=== PATIENT | female | born 1955 | race Caucasian/White ===

== ENCOUNTER → 2016-07-22 | Outpatient (CLI) | payer BC ==
--- OUTSIDE RECORDS SUMMARY | 2016-07-22 09:25 | XMS REPORT | Continuity of Care Document ---
Author Author [facility] Organization [facility] Address Unknown Phone Unavailable Allergies Medications Problems Date Dx Coded Attending Type Code Diagnosis Diagnosed By 07/13/2015 Ot V76.12 07/13/2015 Ot 733.90 07/13/2015 SREE MÉNDEZ DO S Ot 733.00 07/13/2015 BITA MÉNDEZ DOLINE S Ot 733.90 07/13/2015 FIONA MÉNDEZ DOQUELINE S Ot V76.12 07/31/2015 FIONA MÉNDEZ DOQUELINE S Ot M81.0 07/31/2015 FIONA MÉNDEZ DOQUELINE S Ot Z12.31 11/29/2015 Ot V76.12 OTH SCREEN MAMMO-MALIGN NEOPLASM OF KATELYN 11/29/2015 Ot 733.90 BONE CARTILAGE DIS NOS 11/29/2015 LIZBETHNDER DO, SREE S Ot 733.00 OSTEOPOROSIS NOS 11/29/2015 LIZBETHNDER DO, SREE S Ot 733.90 BONE CARTILAGE DIS NOS 11/29/2015 LIZBETHNDER DO, SREE S Ot V76.12 OTH SCREEN MAMMO-MALIGN NEOPLASM OF KATELYN 11/29/2015 BITA MÉNDEZ DOLINE S Ot M81.0 AGE-RELATED OSTEOPOROSIS W/O CURRENT PAT 11/29/2015 FIONA MÉNDEZ DOQUELINE S Ot Z12.31 ENCNTR SCREEN MAMMOGRAM FOR MALIGNANT NE 11/30/2015 VISH PICHARDO TURBINE SUBASSEMBLER Ot M25.472 EFFUSION, LEFT ANKLE 11/30/2015 VISH PICHARDO TURBINE SUBASSEMBLER Ot M25.572 PAIN IN LEFT ANKLE AND JOINTS OF LEFT FO 12/05/2015 VISH PICHARDO TURBINE SUBASSEMBLER Ot M25.472 EFFUSION, LEFT ANKLE 12/05/2015 VISH PICHARDO TURBINE SUBASSEMBLER Ot M25.572 PAIN IN LEFT ANKLE AND JOINTS OF LEFT FO 12/29/2015 VISH PICHARDO TURBINE SUBASSEMBLER Ot M25.472 EFFUSION, LEFT ANKLE 12/29/2015 VISH PICHARDO APRN Ot M25.572 PAIN IN LEFT ANKLE AND JOINTS OF LEFT FO 02/01/2016 Ot V76.12 OTH SCREEN MAMMO-MALIGN NEOPLASM OF KATELYN 02/01/2016 Ot 733.90 BONE CARTILAGE DIS NOS 02/01/2016 ORENDER DO, SREE S Ot 733.00 OSTEOPOROSIS NOS 02/01/2016 ORENDER DO, SREE S Ot 733.90 BONE CARTILAGE DIS NOS 02/01/2016 ORENDER DO, SREE S Ot V76.12 OTH SCREEN MAMMO-MALIGN NEOPLASM OF KATELYN 02/01/2016 ORENDER DO, SREE S Ot M81.0 AGE-RELATED OSTEOPOROSIS W/O CURRENT PAT 02/01/2016 ORENDER DO, SREE S Ot Z12.31 ENCNTR SCREEN MAMMOGRAM FOR MALIGNANT NE 02/01/2016 VISH PICHARDO APRN Ot M25.472 EFFUSION, LEFT ANKLE 02/01/2016 VISH PICHARDO APRN Ot M25.572 PAIN IN LEFT ANKLE AND JOINTS OF LEFT FO 05/07/2016 Ot V76.12 OTH SCREEN MAMMO-MALIGN NEOPLASM OF KATELYN 05/07/2016 Ot 733.90 BONE CARTILAGE DIS NOS 05/07/2016 ORENDER DO, SREE S Ot 733.00 OSTEOPOROSIS NOS 05/07/2016 ORENDER DO, SREE S Ot 733.90 BONE CARTILAGE DIS NOS 05/07/2016 ORENDER DO, SREE S Ot V76.12 OTH SCREEN MAMMO-MALIGN NEOPLASM OF KATELYN 05/07/2016 ORENDER DO, SREE S Ot M81.0 AGE-RELATED OSTEOPOROSIS W/O CURRENT PAT 05/07/2016 ORENDER DO, SREE S Ot Z12.31 ENCNTR SCREEN MAMMOGRAM FOR MALIGNANT NE 05/07/2016 VISH PICHARDO APRN Ot M25.472 EFFUSION, LEFT ANKLE 05/07/2016 VISH PICHARDO APRN Ot M25.572 PAIN IN LEFT ANKLE AND JOINTS OF LEFT FO 05/07/2016 Ot V76.12 OTH SCREEN MAMMO-MALIGN NEOPLASM OF KATELYN 05/07/2016 Ot 733.90 BONE CARTILAGE DIS NOS 05/07/2016 SREE MÉNDEZ DO Ot 733.00 OSTEOPOROSIS NOS 05/07/2016 SREE MÉNDEZ DO Ot 733.90 BONE CARTILAGE DIS NOS 05/07/2016 SREE MÉNDEZ DO Ot V76.12 OTH SCREEN MAMMO-MALIGN NEOPLASM OF KATELYN 05/07/2016 BITA MÉNDEZ DOLINE Clau Ot M81.0 AGE-RELATED OSTEOPOROSIS W/O CURRENT PAT 05/07/2016 SREE MÉNDEZ DO Ot Z12.31 ENCNTR SCREEN MAMMOGRAM FOR MALIGNANT NE 05/07/2016 VISH PICHARDO TURBINE SUBASSEMBLER Ot M25.472 EFFUSION, LEFT ANKLE 05/07/2016 VISH PICHARDO TURBINE SUBASSEMBLER Ot M25.572 PAIN IN LEFT ANKLE AND JOINTS OF LEFT FO Procedures Results Encounters ACCT No. Visit Date/Time Discharge Status Pt. Type Provider Facility Loc./Unit Complaint [id number] 07/02/2013 10:38:00 2013 23:59:59 CLS Outpatient SREE MÉNDEZ DO [facility] RAD SCREENING,OSTEOPORSIS [id number] 11/29/2015 15:03:00 ACT Outpatient VISH PICHARDO TURBINE SUBASSEMBLER [facility] RAD ANKLE PAIN AND SWELLING [id number] 07/13/2015 11:10:00 ACT Outpatient DEV AWAN SREE S [facility] RAD OSTEOPOROSIS, SCREENING [id number] 07/02/2011 12:55:00 Document Registration [id number] 12/28/2010 08:28:00 Document Registration
--- NOTE | 2016-07-22 21:31 | Diagnostic Imaging Report ---
INDICATION: Screening. The current study was also evaluated with a Computer Aided Detection (CAD) system. Comparison made with prior examination of 07/13/2015, 07/02/2013, and 12/28/2010. FINDINGS: There is a moderate amount of residual fibroglandular tissue bilaterally. There is a benign type calcification on the right. There is no new dominant mass, spiculated lesion, or suspicious calcification identified. The skin, nipples, and axillae are unremarkable. IMPRESSION: Benign. ACR BI-RADS Category 2: Benign findings. Result letter will be mailed to the patient. Note: At least 10% of breast cancer is not imaged by mammography. Dictated by: Dictated on workstation # [id number]
== END ==
LOC: RAD 09:22
PROVIDERS: ATTEND Family Medicine
DX: Z12.31 Encounter for screening mammogram for malignant neoplasm of breast (principal)
CPT/HCPCS: 77067

== ENCOUNTER → 2018-04-09 | Outpatient (CLI) | payer BC ==
--- NOTE | 2018-04-09 14:20 | Diagnostic Imaging Report ---
DEXA scan Indication: Screening for osteoporosis. This study was compared to the prior exam of 07/13/2015. The bone mineral density of hips and spine was measured. The T score for the spine is -1.9 On the prior exam the T score is -2.1. The T score for the left hip is -1.5 and the right hip -1.3 On the prior exam the respective T. scores were -1.3 and -1.0. Impression: There are mixed results. There has been a slight increase in the bone mineral density of the spine and a slight decrease in the bone mineral density of each hip. All the T-scores remain within the range of osteopenia however. Dictated by: Dictated on workstation # [id number]
--- NOTE | 2018-04-09 16:58 | Diagnostic Imaging Report ---
Indication: Routine screening. Comparison is made with prior mammogram from 07/22/2016 and 07/13/2015. 2-D and 3-D bilateral screening mammography was performed with CAD. Both breasts remain heterogeneously dense, limiting the sensitivity of mammography. The parenchymal pattern is stable. No dominant mass or malignant-appearing microcalcifications are seen. The axillae are unremarkable. Impression: BI-RADS category 2 No mammographic features suspicious for malignancy are identified. ACR BI-RADS Category 2: Benign findings. Result letter will be mailed to the patient. Note: At least 10% of breast cancer is not imaged by mammography. Dictated by: Dictated on workstation # [id number]
== END ==
LOC: RAD 08:49
PROVIDERS: ATTEND Family Medicine
DX: Z12.31 Encounter for screening mammogram for malignant neoplasm of breast (principal); Z13.820 Encounter for screening for osteoporosis; M85.88 Other specified disorders of bone density and structure, other site
CPT/HCPCS: 77067; 77080

== ENCOUNTER → 2018-05-14 | Outpatient (CLI) | payer BC ==
--- NOTE | 2018-05-14 14:46 | Diagnostic Imaging Report ---
INDICATION: Chest and back pain. FINDINGS: The heart size, mediastinal configuration, and pulmonary vascularity are within normal limits. There is no pleural effusion, pneumothorax, or pneumonia. The osseous structures are unremarkable. IMPRESSION: No acute cardiopulmonary abnormality. Dictated by: Dictated on workstation # [id number]
== END ==
LOC: RAD 13:47
PROVIDERS: ATTEND Family Medicine
DX: R07.9 Chest pain, unspecified (principal); M54.9 Dorsalgia, unspecified
CPT/HCPCS: 71046

== ENCOUNTER → 2018-05-21 | Outpatient (CLI) | payer BC ==
[2018-05-21 11:39] VITALS: BP 141/77
--- NOTE | 2018-05-21 11:39 | Cardiology Stress Test Report ---
Stress Test Report Date of Procedure/Referring: Date of Procedure: May 21, 2018 PCP Asha Lilly MD Admitting Physician Annita Mcmanus DO Indications: Chest pain. Baseline Heart Rate: 63 Baseline Blood Pressure: Blood Pressure Systolic: 141 Blood Pressure Diastolic: 77 Baseline EKG: Baseline EKG: sinus rhythm Summary/Conclusion: Summary: In summary, the patient started exercising with a baseline heart rate, blood pressure and EKG mentioned above Patient was able to exercise for a total of 8 minutes on Joel protocol, METs 9.7 Maximum heart rate 146, which is 92 percent of maximum predicted heart rate response. Maximum blood pressure 198/68 mmHg. Stress EKG horizontal [address] depressions noted. Recovery EKG Return to baseline Conclusion: 1. Excellent functional capacity. 2. Hypertensive response to exercise. 3. ST depressions noted on peak exercise and recovery, however no chest pain. 4. This will be considered a positive stress test. I discussed with Dr. Mcmanus and we will set up an outpatient visit. Asha LILLY MD May 21, 2018 11:39 am
== END ==
LOC: CARD 10:40
PROVIDERS: ATTEND Internal Medicine Interventional Cardiology
DX: R07.9 Chest pain, unspecified (principal)
CPT/HCPCS: 93017

== ENCOUNTER → 2018-06-19 | Outpatient (CLI) | payer BC | LOC: CARD 13:01 | PROVIDERS: ATTEND Family Medicine | DX: R07.9 Chest pain, unspecified (principal) | CPT/HCPCS: 93306 ==

== ENCOUNTER 2019-03-25 08:09 | Day surgery (SDC) | payer BC ==
[2019-03-25] VITALS (10 sets, daily range): BP systolic 107–135; BP diastolic 61–82
[~2019-03-25] VITALS: Ht 167.7 cm; Wt 68.0 kg
[2019-03-25] MEDS ORDERED: NS IV 1000 ML 1,000 ML ONE (08:29)
[2019-03-25] MEDS ORDERED: LIDOCAINE 1% INJ 20 ML 20 ML VIAL ONE ×2 (08:29→10:09)
[2019-03-25] MEDS ORDERED: HEParin (CATH LAB) 2,000 ML IV ONE (08:29)
[2019-03-25 08:51] LABS: HEMOGLOBIN 14.5 G/DL (11.5-16.0); MEAN PLATELET VOLUME 10.9 FL (7.4-10.4); RED CELL DISTRIBUTION WIDTH 13.4 % (10.0-14.5); WHITE BLOOD COUNT 7.8 10^3/uL (4.3-11.0)
[2019-03-25 09:14] LABS: ALBUMIN 4.3 GM/DL (3.2-4.5); BILIRUBIN,TOTAL 0.4 MG/DL (0.1-1.0); CALCIUM 10.1 MG/DL (8.5-10.1); CREATININE SERUM 1.1 MG/DL (0.60-1.30); POTASSIUM 3.9 MMOL/L (3.6-5.0); TOTAL PROTEIN 6.9 GM/DL (6.4-8.2)
[2019-03-25 09:18] LABS: INR 0.8 (0.8-1.4); PROTHROMBIN TIME PATIENT 11.8 SEC (12.2-14.7)
[2019-03-25] MEDS ORDERED: MIDAZOLAM 5 MG/5 ML (VERSED) VIAL ONE (09:31)
[2019-03-25] MEDS ORDERED: VERAPAMIL 5 MG/2 ML (CALAN) VIAL IV ONE (09:32)
[2019-03-25] MEDS ORDERED: NITRO DRIP 25000 MCG/D5W 250 ML IV ONE (09:32)
[2019-03-25] MEDS ORDERED: fentaNYL INJECTION 100 MCG/2 ML AMP ONE (09:32)
[2019-03-25] MEDS ORDERED: HEParin 1000 UNIT/ML (10ML VIAL) FOR BOLUS ONE (09:32)
[2019-03-25] MEDS ORDERED: ADENOSINE 3 MG/1 ML (ADENOSCAN) 30ML VIAL IV ONE (10:25)
--- NOTE | 2019-03-25 11:05 | Cardiac Procedure Note-CS/ASA ---
Pre-Procedure Note Pre-Op Procedure Note H&P Reviewed The H&P was reviewed, patient examined and no changes noted. Date H&P Reviewed: Mar 25, 2019 Time H&P Reviewed: 09:00 Conscious Sedation Pre-Proced Time 09:00 ASA Score 3 For ASA 3 and 4: Consider anesthesia and medical clearance. Also, for patients with a history of failed moderate sedation consider anesthesia. Airway Lungs Heart ASA score ASA 1: a normal healthy patient ASA 2: a patient with a mild systemic disease (mid diabetes, controlled hypertension, obesity ASA 3: a patient with a severe systemic disease that limits activity (angina, COPD, prior Myocardial infarction) ASA 4: a patient with an incapacitating disease that is a constant threat to life (CHF, renal failure) ASA 5: a moribund patient not expected to survive 24 hrs. (ruptured aneurysm) ASA 6: a declared brain- patient whose organs are being harvested. For emergent operations, add the letter E after the classification Mallampati Classification Grade 1 Sedation Plan Analgesia, Amnesia, Plan communicated to team members, Discussed options with patient/fam, Discussed risks with patient/fam The patient is an appropriate candidate to undergo the planned procedure, sedation, and anesthesia. The patient immediately re-assessed prior to indication. Asha WAITE MD Mar 25, 2019 11:05 am
--- NOTE | 2019-03-25 11:11 | Coronary Angiography Report ---
Coronary Angiography Report DATE OF PROCEDURE: 03/25/19 INDICATION: Chest pain, abnormal nuclear stress test. PREOPERATIVE DIAGNOSIS: Chest pain, abnormal nuclear stress test. POSTOPERATIVE DIAGNOSIS: Moderate one-vessel CAD. HISTORY: This is a 64-year-old lady with complains of chest pain. Exercise stress test showed ST depression during peak exercise. Therefore, the patient was scheduled for coronary angiography. PROCEDURES PERFORMED: 1.Coronary angiography. 2.Left heart catheterization. 3. FFR to the proximal LAD. COMPLICATIONS: None. SPECIMENS: None. ESTIMATED BLOOD LOSS: 10 mL ANESTHESIA: Conscious sedation ANTICOAGULATION: IV heparin CONTRAST: 127 mL. FLUOROSCOPY: 18.8 minutes. FLOUROSCOPY DOSE: 521 mgy. PROCEDURE DETAILS: The patient is a 64 female and was brought to the lab animal technologist after informed consent was taken. All the risks and complications were explained in detail; this included the risk of bleeding, vascular damage, stroke, [place] and even . The patient was draped and prepped in the usual sterile fashion. We tried to gain access in the right radial artery but were not able to get access. Therefore access was gained in the right femoral artery with a 5 Marshallese sheath. Coronary angiography and left heart catheterization was performed with a JR4 and JL4 catheter. FINDINGS: 1.Left main: Patent. 2.LAD: Moderate ostial LAD stenosis. Stenosis severity 50 percent. Mild proximal LAD stenosis. Mild calcification is noted. 3.Left circumflex artery: Patent. 4.RCA: Patent. Small vessel. 5.Left heart catheterization: LV pressure 121/5 mmHg. LVEDP 12 mmHg. Aortic pressure 119/68 mmHg. Normal LV function with no wall motion abnormalities. No gradient across the aortic valve. Recommendations: FFR to ostial LAD is recommended. FFR details: We used the same 5 Marshallese diagnostic catheter. 5000 of IV heparin was given. We used an FFR wire to cross the lesion in the ostial LAD. Baseline FFR was baseline FFR was 0.95. Adenosine was started at 140 g per KG per minute for 2 minutes. The lowest FFR was 0.86 which is acceptable therefore PCI was deferred. The wire was taken out at the end of the procedure and post-angiogram did not reveal any vascular complication. The patient tolerated the procedure well and did not have any complication. The right femoral artery was closed with a mynx device. CONCLUSIONS: Moderate ostial LAD stenosis. Normal LV function. Continue aggressive secondary prevention measures. Kody Lilly MD, FACP, FACC, [facility] Interventional Cardiology Asha LILLY MD Mar 25, 2019 11:10 am
[2019-03-25] MEDS ORDERED: ASPI-983 PO (11:14)
[2019-03-25] MEDS ORDERED: ATOR40TA PO (11:15)
--- NOTE | 2019-03-25 11:15 | Discharge Inst-Post CATH ---
Discharge Inst-CATH/EP Problems Reviewed?: Yes Final Diagnosis Moderate one vessel CAD Post Cardiac Cath/EP D/C Inst Follow Up/Plan Dr. Lilly in 4-6 weeks. <b>CARDIAC CATH/EP PROCEDURE DISCHARGE INSTRUCTIONS</b> ACTIVITY * Go Home directly and rest. * Limit activity of the leg (or wrist if it was used) for 7 days including aerobics, swimming, jogging, bicycling, etc. * Restrict stair-climbing for 7 days if possible, if not, climb up with your non-cath leg, then bring together on the same step. * Avoid lifting, pushing, pulling or excessive movement of the affected extremity for 7 days. * Customary sexual activity may be resumed after 2 days-use caution not to use a position that strains or causes pain to the affected extremity. * No driving for 24 hours. * NO SMOKING. * Avoid straining for bowel movements for 7 days. * Gentle walking on level ground is allowed. * Returning to work will depend on the type of procedure and the results. Your doctor will discuss this with you. CALL YOUR DOCTOR FOR ANY OF THE FOLLOWING: *If bleeding from the puncture site occurs- Apply gentle pressure to site with clean cloth and call your doctor or EMS. * If a knot or lump forms under the skin, increases in size, or causes pain. * If bruising appears to be worsening or moving further down your leg instead of disappearing. * Temperature above 101 F. CARE OF YOUR GROIN INCISION; * Bruising or purple discoloration of the skin near the puncture site is common. * You may shower only, no bathtub bathing for 5 days. Be careful to avoid slipping as your leg may feel stiff. * If a closure device was used on your femoral artery, please see the attached guide regarding care of the device and your leg. * Leave dressing on FOR 24 hours. CARE OF YOUR WRIST INCISION; * Bruising or purple discoloration of the skin near the puncture site is common. * You may shower. * DO NOT submerge wrist. * Leave dressing on FOR 24 hours. Asha LILLY MD Mar 25, 2019 11:15 am
--- NOTE | 2019-03-25 11:18 | Cardiology Discharge Summary ---
Diagnosis/Chief Complaint Date of Admission 03/25/2019 Date of Discharge 03/25/2019 Admission Diagnosis Chest pain, abnormal exercise stress test. Final/Discharge Diagnosis Moderate one vessel CAD Chief Complaint/HPI Chief Complaint/HPI This is a 64-year-old lady with complains of chest pain. Exercise stress test showed ST depressions at peak exercise. Coronary angiography was recommended. Discharge Summary Procedures Moderate one vessel CAD in the ostial LAD, stenosis severity 50 percent, FFR 0.86 therefore PCI was deferred. Normal LV function with no wall motion abnormalities. Normal LVEDP. Discharge Physical Examination Normal. Hospital Course Was the Problem List Reviewed?: Yes Normal. Pending Labs Laboratory Tests 03/25/19 08:44: White Blood Count 7.8, Red Blood Count 4.59, Hemoglobin 14.5, Hematocrit 43, Mean Corpuscular Volume 94, Mean Corpuscular Hemoglobin 32, Mean Corpuscular Hemoglobin Concent 34, Red Cell Distribution Width 13.4, Platelet Count 194, Mean Platelet Volume 10.9, Prothrombin Time 11.8, INR Comment 0.8, Activated Partial Thromboplast Time 28, Sodium Level 145, Potassium Level 3.9, Chloride Level 107, Carbon Dioxide Level 25, Anion Gap 13, Blood Urea Nitrogen 22, Creatinine 1.10, Estimat Glomerular Filtration Rate 50, BUN/Creatinine Ratio 20, Glucose Level 88, Calcium Level 10.1, Corrected Calcium 9.9, Total Bilirubin 0.4, Aspartate Amino Transf (AST/SGOT) 20, Alanine Aminotransferase (ALT/SGPT) 22, Alkaline Phosphatase 56, Total Protein 6.9, Albumin 4.3, Triglycerides Level 136, Cholesterol Level 196, LDL Cholesterol Direct 107, VLDL Cholesterol 27, HDL Cholesterol 55 Discussion & Recommendations Discussion Discharge instructions will be discussed with the patient. Patient will be started on aspirin and statin therapy. Follow up appt.: Dr. Lilly in 4-6 weeks. Dicharge Diet: Cardiac Diet Activity as Tolerated: Yes Home Medications Reviewed patient Home Medication Reconciliation performed by pharmacy medication reconciliations loss control technician and/or nursing. Patients Allergies have been reviewed. Discharge Home Medications: Reviewed and agree with Discharge Medication list on patient's Discharge Instruction sheet Condition at discharge Stable. Instructions to patient/family Dr. Lilly in 4-6 weeks. Asha LILLY MD Mar 25, 2019 11:18 am
[2019-03-25] MEDS ORDERED: NS IV 1000 ML 1,000 ML IV SCH (12:10)
== END 2019-03-25 16:00 | disposition home or self-care (01) ==
LOC: CATH 08:09 → SDC 11:40 → CATH 16:00
PROVIDERS: ATTEND Internal Medicine Interventional Cardiology
DX: I25.10 Atherosclerotic heart disease of native coronary artery without angina pectoris (principal); I11.9 Hypertensive heart disease without heart failure; E78.5 Hyperlipidemia, unspecified; F17.210 Nicotine dependence, cigarettes, uncomplicated; Z79.82 Long term (current) use of aspirin; Z79.899 Other long term (current) drug therapy; Z82.49 Family history of ischemic heart disease and other diseases of the circulatory system; Z83.3 Family history of diabetes mellitus; Z80.9 Family history of malignant neoplasm, unspecified; Z82.3 Family history of stroke
CPT/HCPCS: 36415; 80053; 80061; 85027; 85610; 85730; 87081; 93458

== ENCOUNTER → 2019-06-14 | Outpatient (CLI) | payer BC, OTHER ==
[~2019-06-14] MED LIST: ASPI-983 PO; ATOR40TA PO
--- NOTE | 2019-06-14 13:13 | Diagnostic Imaging Report ---
PROCEDURE: US carotid duplex, bilateral. TECHNIQUE: Multiple real-time grayscale images were obtained over the carotid arteries in various projections, bilaterally. Additional spectral analysis and color Doppler duplex images were also obtained. INDICATION: Dizziness and hyperlipidemia. FINDINGS: There is some intimal thickening in both carotid systems. No significant velocity elevation is seen to suggest focal stenosis. There is no occlusion. Both vertebral arteries demonstrate antegrade flow. IMPRESSION: No evidence of a hemodynamically significant stenosis. Parameters based on the consensus panel Hogan-Scale and Doppler ultrasound criteria published April 2003, Radiology, Volume 229. DOPPLER (peak systolic velocity M/S Right Left CCA 1.01 .84 ICA Proximal .63 .73 ICA Mid .84 .96 ICA Distal .94 .86 RATIO .9 1.1 ECA .90 .74 VERT .31 .58 Dictated by: Dictated on workstation # [id number]
== END ==
LOC: RAD 10:56
PROVIDERS: ATTEND Nurse Practitioner Family
DX: E78.5 Hyperlipidemia, unspecified (principal); R42 Dizziness and giddiness
CPT/HCPCS: 93880

== ENCOUNTER → 2019-06-24 | Outpatient (CLI) | payer BC ==
--- NOTE | 2019-06-24 11:28 | Diagnostic Imaging Report ---
EXAMINATION: CT low-dose lung cancer screening exam. INDICATION: 40 pack-year smoking history. COMPARISON: There are no prior CT chest examinations available for comparison. The plain film examination of the chest performed on 05/14/2018 failed to show any sign of an acute abnormality. TECHNIQUE: Routine images of the thorax using the CT low-dose lung cancer screening protocol were performed. All CT scans use one or more of the following dose optimizing techniques: automated exposure control, MA and/or KvP adjustment based on patient size and exam type or iterative reconstruction. FINDINGS: There is no parenchymal nodule to suggest malignancy. There is a 4 mm calcified perifissural nodule in the right midlung (image 162 of 213). This finding is most likely a small granuloma. There is a coarse band of increased density in the right lung base. I suspect this is related to chronic atelectasis/fibrosis. The lungs are otherwise generally clear. The heart size is within normal limits. Coronary artery calcifications are noted. The aorta is not abnormally dilated. There is no obvious mediastinal or hilar adenopathy. The thyroid gland is unremarkable. There is a 1 cm lobulated density in the lateral aspect of the left breast. In reviewing the previous mammogram of 04/09/2018 there was no clear evidence for malignancy in this area. Even so, I would recommend that the patient have a repeat mammogram for more sensitive evaluation of this area. The sections through the upper abdomen failed to show any sign of an acute abnormality. The bone windows are unremarkable for a fracture or for a destructive lesion. IMPRESSION: 1. There is no solid mass to suggest malignancy. A follow-up low-dose lung cancer screening exam in one year would be recommended for continued evaluation. 2. There is a band of chronic atelectasis/fibrosis in the right lung base. There is no evidence for an acute cardiopulmonary abnormality. 3. The heart is not enlarged but coronary artery calcifications are evident. 4. Mammography would be recommended for further evaluation of the asymmetric nodular density in the left breast. LUNG-RADS CATEGORY: 1S Dictated by: Dictated on workstation # [id number]
== END ==
LOC: RAD 10:04
PROVIDERS: ATTEND Family Medicine
DX: Z12.2 Encounter for screening for malignant neoplasm of respiratory organs (principal); F17.200 Nicotine dependence, unspecified, uncomplicated

== ENCOUNTER → 2019-07-05 | Outpatient (CLI) | payer BC ==
--- NOTE | 2019-07-05 14:10 | Diagnostic Imaging Report ---
INDICATION: Left breast density noted on recent CT. Correlation is made with prior mammograms from 04/09/2018 and 07/22/2016. 2-D and 3-D bilateral diagnostic mammography was performed. The current study was also evaluated with a Computer Aided Detection (CAD) system. 3-D tomosynthesis was also performed and reviewed. FINDINGS: Both breasts remain heterogeneously dense, limiting the sensitivity of mammography. There are benign calcifications bilaterally. No mass or malignant-appearing microcalcifications are seen. Axillae are unremarkable. IMPRESSION: No mammographic features suspicious for malignancy are identified. ACR BI-RADS Category 2: Benign findings. Result letter will be mailed to the patient. Note: At least 10% of breast cancer is not imaged by mammography. Dictated by: Dictated on workstation # [id number]
== END ==
LOC: RAD 12:58
PROVIDERS: ATTEND Family Medicine
DX: R92.2 Inconclusive mammogram (principal)
CPT/HCPCS: 77066

== ENCOUNTER → 2019-12-14 | Outpatient (CLI) | payer BC ==
--- NOTE | 2019-12-14 15:57 | Diagnostic Imaging Report ---
INDICATION: Left breast asymmetry noted on screening CT chest. Sonographic interrogation of the outer left breast was performed. There is an area of slightly irregular hypoechogenicity at the 2:30 location of the left breast, 8 cm from the nipple. This measures 6 mm x 8 mm x 4 mm. This could conceivably represent the area of asymmetry. No internal vascularity is detected. In addition, there is a cyst at the 3:00 location 4 cm from the nipple measuring 7 mm x 3 mm x 6 mm. There is a cyst at the 3:00 location 5 cm from the nipple measuring 7 mm x 5 mm x 7 mm. No other abnormalities are detected. IMPRESSION: BI-RADS Category 4 Focal, slightly irregular hypoechogenicity at the 2:30 location left breast, 8 cm from the nipple. While this could represent fibro-glandular tissue, small breast neoplasm cannot be entirely excluded. Tissue sampling is recommended. This would be amenable to ultrasound-guided core biopsy. ACR BI-RADS Category 4: Suspicious abnormality. Dictated by: Dictated on workstation # [id number]
== END ==
LOC: RAD 13:15
PROVIDERS: ATTEND Family Medicine
DX: R92.2 Inconclusive mammogram (principal); N64.89 Other specified disorders of breast
CPT/HCPCS: 76642

== ENCOUNTER → 2019-12-20 | Outpatient (CLI) | payer BC ==
[~2019-12-20] VITALS: Ht 170.2 cm; Wt 70.5 kg
[~2019-12-20] MED LIST changes: +LIDOCAINE 1% INJ 20 ML 20 ML VIAL INJ ONE
--- NOTE | 2019-12-20 10:26 | Diagnostic Imaging Report ---
INDICATION: Left breast density. Patient presents for biopsy. TECHNIQUE: The patient was brought to the procedure room and placed on the table in the supine position. Ultrasound imaging of the left breast was performed to evaluate for an appropriate entry site. The left breast was then prepped and draped in the usual sterile fashion. A small amount of 1% lidocaine was utilized for local anesthesia. Multiple core biopsies were obtained of the hypoechoic lesion at the 2:30 location of the left breast, 8 cm from the nipple. A 13-gauge vacuum-assisted handheld mammotome device was utilized. A marker clip was then deployed. Hemostasis was obtained using manual compression. The patient tolerated the procedure well and left the Department in stable condition. IMPRESSION: Successful ultrasound-guided biopsy of the hypoechoic nodule at the 2:30 location of the left breast 8 cm from the nipple utilizing a hand held vacuum assisted mammotome device. Pathology results are currently pending. Dictated by: Dictated on workstation # [id number]
--- NOTE | 2019-12-20 11:21 | Diagnostic Imaging Report ---
INDICATION: Left breast nodule, status post ultrasound-guided biopsy. 2D exaggerated CC and mediolateral mammography was performed status post ultrasound-guided core biopsy. There is a marker clip in the upper and outer aspect of the left breast at posterior depth, status post biopsy. Left breast is heterogeneously dense. IMPRESSION: Clip upper outer left breast, status post biopsy. Pathology results are currently pending. Dictated by: Dictated on workstation # [id number]
== END ==
LOC: RAD 08:45
PROVIDERS: ATTEND Family Medicine
DX: N63.20 Unspecified lump in the left breast, unspecified quadrant (principal); R92.2 Inconclusive mammogram
CPT/HCPCS: 19083; 77065; A4648; G0279

== ENCOUNTER → 2020-01-03 | Outpatient (CLI) | payer MEDICARE, OTHER ==
[~2020-01-03] MED LIST changes: +GADOBUTROL 7.5 MMOL/7.5 ML (GADAVIST) VIAL IV ONE; -LIDOCAINE 1% INJ 20 ML 20 ML VIAL INJ ONE; +NS 50 ML (IVPB) BAG IV ONE
== END ==
LOC: RAD 10:15
PROVIDERS: ATTEND Nurse Practitioner Family
DX: R92.8 Other abnormal and inconclusive findings on diagnostic imaging of breast (principal)
CPT/HCPCS: 77049

== ENCOUNTER → 2020-06-27 | Outpatient (CLI) | payer MEDICARE, OTHER ==
[~2020-06-27] MED LIST changes: +ASPI-1238 PO; -ASPI-983 PO; -GADOBUTROL 7.5 MMOL/7.5 ML (GADAVIST) VIAL IV ONE; -NS 50 ML (IVPB) BAG IV ONE
--- NOTE | 2020-06-27 10:24 | Diagnostic Imaging Report ---
EXAMINATION: CT Chest without contrast (lung screening). TECHNIQUE: Multiple contiguous axial images were obtained through the chest without the use of intravenous contrast according to lung cancer screening protocol. All CT scans use one or more of the following dose optimizing techniques: automated exposure control, MA and/or KvP adjustment based on a patient size and exam type, or iterative reconstruction. HISTORY: 41 pack year history of smoking. COMPARISON: CT chest 06/24/2019 FINDINGS: Thyroid: The thyroid is normal. Mediastinum: Heart size is normal without significant pericardial effusion. Calcifications of the aorta and coronary vessels. Thoracic aorta is normal in caliber. No suspicious lymphadenopathy. Lungs and airways: The lungs are clear without consolidation, pleural effusion, or pneumothorax. There are multiple bilateral pulmonary nodules. The largest nodule within the right lung measures 0.4 cm along the lateral margin of the right upper lobe (series 2 image 120). The largest left nodule measures 0.6 cm within the inferior left lower lobe (series 2 image 199). These nodules are unchanged from 06/24/2019. No new suspicious pulmonary nodule. Linear atelectasis or scarring within the right lower lobe. The airways are normal. Upper abdomen: The subphrenic structures are normal. Musculoskeletal: No suspicious osseous lesion or compression fracture. IMPRESSION: 1. Stable bilateral pulmonary nodules measuring up to 0.6 cm. No new suspicious pulmonary nodule. Recommend continued annual low-dose CT screening. LUNG-RADS CATEGORY: 2: Benign appearance or behavior. MODIFIER: None. Dictated by: Dictated on workstation # [id number]
== END ==
LOC: RAD 09:45
PROVIDERS: ATTEND Family Medicine
DX: R91.8 Other nonspecific abnormal finding of lung field (principal); F17.210 Nicotine dependence, cigarettes, uncomplicated
CPT/HCPCS: 71271

== ENCOUNTER → 2020-11-09 | Outpatient (CLI) | payer MEDICARE, OTHER ==
--- NOTE | 2020-11-09 14:30 | Diagnostic Imaging Report ---
Digital mammogram INDICATION: Bilateral screening This study was compared to the prior exams of 07/05/2019 and 04/09/2018. At this time there are no current complaints. The previous bilateral diagnostic mammogram of 07/05/2019 failed to show any sign of malignancy. However the subsequent left breast ultrasound exam of 12/14/2019 did note a focal slightly irregular hypoechoic area in the 2:30 position of the left breast up to 8 cm from the nipple. This area was biopsied using ultrasound guidance on 12/21/2019. The results of the biopsy revealed mild intraductal hyperplasia without atypia. There was no evidence of malignancy. The MRI breast exam performed on 01/03/2020 was also felt to be unremarkable for malignancy. On this exam there is now a stereotactic clip associated with a small benign-appearing nodular density in the upper outer aspect of the left breast. The nodular density was not clearly evident on the prior exam and could conceivably represent a small hematoma. The overall appearance of breasts has not changed significantly otherwise. The fibroglandular tissue in both breasts is dense and this does limit the sensitivity of this exam. There is no primary or secondary sign of malignancy noted. IMPRESSION: There are post biopsy changes involving the left breast. There is no evidence for malignancy. ACR BI-RADS Category 1: Negative. Result letter will be mailed to the patient. Note: At least 10% of breast cancer is not imaged by mammography. Dictated by: Dictated on workstation # [id number]
== END ==
LOC: RAD 10:30
PROVIDERS: ATTEND Nurse Practitioner Family
DX: Z12.31 Encounter for screening mammogram for malignant neoplasm of breast (principal)
CPT/HCPCS: 77063; 77067

== ENCOUNTER 2020-12-01 13:25 | Outpatient (RCR) | payer MEDICARE, OTHER | END 2020-12-01 13:47 | disposition home or self-care (01) | PROVIDERS: ATTEND Nurse Practitioner Family | DX: N81.89 Other female genital prolapse (principal); N39.3 Stress incontinence (female) (male) ==

== ENCOUNTER → 2022-02-28 | Outpatient (CLI) | payer MEDICARE, OTHER ==
--- NOTE | 2022-02-28 17:01 | Diagnostic Imaging Report ---
INDICATION: Routine screening. COMPARISON: Prior mammograms of 11/09/2020 and 07/05/2019. EXAMINATION: 2D and 3D bilateral screening mammography was performed with CAD. The current study was also evaluated with a Computer Aided Detection (CAD) system. FINDINGS: Both breasts are heterogeneously dense, limiting the sensitivity of mammography. Nodular densities outer left breast are stable. There are benign calcifications in both breasts. No spiculated mass or malignant-appearing microcalcifications are seen. Axillae are unremarkable. IMPRESSION: No mammographic features suspicious for malignancy are identified. ACR BI-RADS Category 2: Benign findings. Result letter will be mailed to the patient. Note: At least 10% of breast cancer is not imaged by mammography. Dictated by: Dictated on workstation # [id number]
== END ==
LOC: RAD 11:00
PROVIDERS: ATTEND Family Medicine
DX: Z12.31 Encounter for screening mammogram for malignant neoplasm of breast (principal)
CPT/HCPCS: 77063; 77067

== ENCOUNTER 2022-11-14 18:32 | Emergency (ER) | payer MEDICARE, OTHER ==
--- NOTE | 2022-11-14 19:08 | ED Headache ---
General Chief Complaint: Head/Cervical Problems Stated Complaint: HEADACHE Nursing Triage Note: PT AMB TO RM 8 WITH C/O ACEVEDO SINCE 0500 THIS MORNING WITHOUT RELIEF Source: patient History of Present Illness Date Seen by Provider: Nov 14, 2022 Time Seen by Provider: 18:40 Initial Comments PT ARRIVES VIA POV FROM HOME C/O HEADACHE SINCE 0500 PAIN IS IN FRONTAL AND OCCIPITAL AREAS Allergies and Home Medications Allergies Coded Allergies: No Known Drug Allergies (Unverified , 03/25/19) Patient Home Medication List Aspirin (Aspirin EC) 81 Mg Tablet.dr, 81 MG PO DAILY Prescribed by: Asha WAITE on 03/25/19 1114 Atorvastatin Calcium (Lipitor) 40 Mg Tablet, 40 MG PO DAILY Prescribed by: Asha WAITE on 03/25/19 1115 Past Nepkqup-Uiiwut-Ywxmsp Hx Patient Social History Tobacco Use?: Yes Tobacco type used: Cigarettes Substance use?: No Alcohol Use?: Yes Pt feels they are or have been: No Past Medical History Surgery/Hospitalization HX: HTN, HLD Section, Lumpectomy Respiratory: No Currently Using CPAP: No Currently Using BIPAP: No High Cholesterol, Palpitations Neurological: No Genitourinary: No Gastrointestinal: No Cancer: No Did You Recieve Any Treatments: No Blood Disorders: No Adverse Reaction/Blood Tranf: No Physical Exam Vital Signs Vital Signs - First Documented 11/14/22 18:40 Temp 36.2 Pulse 68 Resp 18 B/P (MAP) 167/74 (105) Pulse Ox 96 O2 Delivery Room Air Capillary Refill : Height, Weight, BMI Height: '" Weight: lbs. oz. kg; 24.33 BMI Method: Progress/Results/Core Measures Results/Orders Lab Results Laboratory Tests Test 11/14/22 19:10 11/14/22 19:40 Range/Units White Blood Count 10.3 4.3-11.0 10^3/uL Red Blood Count 5.08 3.80-5.11 10^6/uL Hemoglobin 16.0 11.5-16.0 g/dL Hematocrit 48 35-52 % Mean Corpuscular Volume 94 80-99 fL Mean Corpuscular Hemoglobin 32 25-34 pg Mean Corpuscular Hemoglobin Concent 34 32-36 g/dL Red Cell Distribution Width 13.0 10.0-14.5 % Platelet Count 181 130-400 10^3/uL Mean Platelet Volume 11.1 9.0-12.2 fL Immature Granulocyte % (Auto) 0 % Neutrophils (%) (Auto) 75 42-75 % Lymphocytes (%) (Auto) 16 12-44 % Monocytes (%) (Auto) 7 0-12 % Eosinophils (%) (Auto) 2 0-10 % Basophils (%) (Auto) 1 0-10 % Neutrophils # (Auto) 7.6 1.8-7.8 10^3/uL Lymphocytes # (Auto) 1.6 1.0-4.0 10^3/uL Monocytes # (Auto) 0.7 0.0-1.0 10^3/uL Eosinophils # (Auto) 0.2 0.0-0.3 10^3/uL Basophils # (Auto) 0.1 0.0-0.1 10^3/uL Immature Granulocyte # (Auto) 0.0 0.0-0.1 10^3/uL Erythrocyte Sedimentation Rate 4 0-30 MM/HR Sodium Level 140 135-145 MMOL/L Potassium Level 3.8 3.6-5.0 MMOL/L Chloride Level 104 98-107 MMOL/L Carbon Dioxide Level 24 21-32 MMOL/L Anion Gap 12 5-14 MMOL/L Blood Urea Nitrogen 15 7-18 MG/DL Creatinine 1.01 0.60-1.30 MG/DL Estimat Glomerular Filtration Rate 61 BUN/Creatinine Ratio 15 Glucose Level 115 H 70-105 MG/DL Calcium Level 10.0 8.5-10.1 MG/DL Corrected Calcium 9.6 8.5-10.1 MG/DL Total Bilirubin 0.7 0.1-1.0 MG/DL Aspartate Amino Transf (AST/SGOT) 18 5-34 U/L Alkaline Phosphatase 79 40-136 U/L C-Reactive Protein High Sensitivity 0.36 0.00-0.50 MG/DL Total Protein 7.1 6.4-8.2 GM/DL Albumin 4.5 3.2-4.5 GM/DL Influenza Type A (RT-PCR) Not Detected Not Detecte Influenza Type B (RT-PCR) Not Detected Not Detecte SARS-CoV-2 RNA (RT-PCR) Not Detected Not Detecte My Orders Orders - STEPHEN GA DO Ct Head Wo-R/O Stroke (11/14/22 19:02) Cbc With Automated Diff (11/14/22 19:02) Comprehensive Metabolic Panel (11/14/22 19:02) Hs C Reactive Protein (11/14/22 19:02) Erythrocyte Sedimentation Rate (11/14/22 19:02) Ed Iv/Invasive Line Start (11/14/22 19:02) Lactated Ringers (Lr 1000 Ml Iv Solution (11/14/22 19:15) Ondansetron Injection (Zofran Injectio (11/14/22 19:15) Ketorolac Injection (Toradol Injection) (11/14/22 19:45) Covid 19 Inhouse Test (11/14/22 19:37) Influenza A And B By Pcr (11/14/22 19:37) Medications Given in ED Current Medications Medications Dose Ordered Sig/Gloria Route Start Time Stop Time Status Last Admin Dose Admin Ketorolac Tromethamine 30 mg ONCE ONCE IVP 11/14/22 19:45 11/14/22 19:46 DC 11/14/22 19:41 30 MG Lactated Ringer's 1,000 ml @ 0 mls/hr Q0M ONCE IV 11/14/22 19:15 11/14/22 19:16 DC 11/14/22 19:10 0 MLS/HR Ondansetron HCl 4 mg ONCE ONCE IVP 11/14/22 19:15 11/14/22 19:16 DC 11/14/22 19:09 4 MG Vital Signs/I&O 11/14/22 11/14/22 18:40 19:41 Temp 36.2 36.2 Pulse 68 Resp 18 B/P (MAP) 167/74 (105) Pulse Ox 96 O2 Delivery Room Air Blood Pressure Mean: 105 Departure Impression Primary Impression: Headache Disposition: 01 HOME, SELF-CARE Condition: Improved Departure-Patient Inst. Decision time for Depature: 20:30 Referrals: SREE MÉNDEZ DO (PCP/Family) Primary Care Physician Patient Instructions: Headache, Adult (DC) Add. Discharge Instructions: HOME, REST LOTS OF CLEAR LIQUIDS TAKE YOUR HOME HYDROCODONE NEEDED FOR PAIN FOLLOW UP WITH YOUR DR TOMORROW IF SYMPTOMS PERSIST, RETURN TO ER IF WORSE All discharge instructions reviewed with patient and/or family. Voiced understanding. STEPHEN GA DO Nov 14, 2022 19:08
[2022-11-14] MEDS ORDERED: LACTATED RINGERS 1,000 ML IV ONE (19:15)
[2022-11-14] MEDS ORDERED: ONDANSETRON 4 MG/2 ML (SDV) Z0FRAN IVP ONE (19:15)
[2022-11-14 19:33] LABS: BASOPHILS # (AUTO) 0.1 10^3/uL (0.0-0.1); BASOPHILS % (AUTO) 1 % (0-10); EOSINOPHILS # (AUTO) 0.2 10^3/uL (0.0-0.3); EOSINOPHILS % (AUTO) 2 % (0-10); HEMATOCRIT 48 % (35-52); LYMPHOCYTES # (AUTO) 1.6 10^3/uL (1.0-4.0); LYMPHOCYTES % (AUTO) 16 % (12-44); MEAN CORPUSCULAR HEMOGLOBIN 32 pg (25-34); MEAN CORPUSCULAR HGB CONC 34 g/dL (32-36); MEAN CORPUSCULAR VOLUME 94 fL (80-99); MEAN PLATELET VOLUME 11.1 fL (9.0-12.2); MONOCYTES # (AUTO) 0.7 10^3/uL (0.0-1.0); MONOCYTES % (AUTO) 7 % (0-12); NEUTROPHILS # (AUTO) 7.6 10^3/uL (1.8-7.8); NEUTROPHILS % (AUTO) 75 % (42-75); PLATELET COUNT 181 10^3/uL (130-400); WHITE BLOOD COUNT 10.3 10^3/uL (4.3-11.0)
[2022-11-14] MEDS ORDERED: KETOROLAC 30 MG/ML VIAL IVP ONE (19:45)
--- NOTE | 2022-11-14 19:54 | Diagnostic Imaging Report ---
CLINICAL INDICATIONS: Patient with headache since 5:00 AM. EXAM: Axial CT scan of the brain performed without IV contrast. High-resolution axial CT brain images with sagittal and coronal reformations were also created. Auto Exposure Controls were utilized during the CT exam to meet ALARA standards for radiation dose reduction. COMPARISON: None. FINDINGS: There is no evidence of acute cerebral infarct, intracranial hemorrhage, or gross mass effect. The brain parenchymal volume appears appropriate for patient's age. There is normal rea-white matter distinction. There is no significant midline shift or herniation. There is no evidence of hydrocephalus. The basal cisterns are unremarkable. The skull, extracranial soft tissue, and orbits are unremarkable. The paranasal sinuses are unremarkable. Temporal bones show no significant abnormality. IMPRESSION: There is no CT evidence of acute intracranial process. There is no dense vessel sign. Results of this report was discussed with Dr. Dina Quesada via the telephone on 11/14/2022 at 1930 hours. Dictated by: Dictated on workstation # [id number]
[2022-11-14 19:56] LABS: ALBUMIN 4.5 GM/DL (3.2-4.5); BILIRUBIN,TOTAL 0.7 MG/DL (0.1-1.0); CREATININE SERUM 1.01 MG/DL (0.60-1.30); POTASSIUM 3.8 MMOL/L (3.6-5.0); TOTAL PROTEIN 7.1 GM/DL (6.4-8.2)
[2022-11-14 20:13] LABS: ERYTHROCYTE SEDIMENTATION RATE 4 MM/HR (0-30)
[2022-11-14] MEDS ORDERED: RX-ONDANSETRON 4 MG ODT (ZOFRAN) PPK #4 PO STA (20:31)
[2022-11-14 20:43] VITALS: BP 150/79
== END 2022-11-14 20:47 | disposition home or self-care (01) ==
LOC: EDUNIT# 18:32 → ER 18:35
DX: R51.9 Headache, unspecified (principal); F17.210 Nicotine dependence, cigarettes, uncomplicated; Z20.822 Contact with and (suspected) exposure to COVID-19
CPT/HCPCS: 36415; 70450; 80053; 85025; 85652; 86141; 87636

== ENCOUNTER → 2023-02-19 | Outpatient (CLI) | payer MEDICARE, OTHER ==
[~2023-02-19] MED LIST changes: +CATHETER FLUSH 10 ML SYR IVP PRN
[2023-02-19 09:30] VITALS: BP 150/89
[2023-02-19 09:37] VITALS: BP 159/92
[2023-02-19 09:39] VITALS: BP 199/91
[2023-02-19 09:45] VITALS: BP 187/77
--- NOTE | 2023-02-19 14:08 | Cardiology Stress Test Report ---
Stress Test Report Date of Procedure/Referring: Date of Procedure: Feb 19, 2023 PCP Annita Mcmanus DO Admitting Physician Admitting Physician: Attending Physician: Erica Jaimes Baseline Heart Rate: 65 Baseline Blood Pressure: Blood Pressure Systolic: 187 Blood Pressure Diastolic: 77 Vital Signs Date Time Temp Pulse Resp B/P (MAP) Pulse Ox O2 Delivery O2 Flow Rate FiO2 02/19/23 09:30 71 150/89 (109) 02/19/23 09:43 22 Baseline Vital Signs Vital Signs Date Time Temp Pulse Resp B/P (MAP) Pulse Ox O2 Delivery O2 Flow Rate FiO2 02/19/23 09:30 71 150/89 (109) 02/19/23 09:43 22 Baseline EKG: Baseline EKG: NSR Summary: After explaining the procedure and details to the patient, she signed the consent and was brought to the stress nuclear laboratory. Patient exercised on standard Joel protocol, EKG, heart rate and blood pressure were monitored continuously, resting and stress doses of radio tracer were injected, imaging was acquired and reviewed in the short axis, horizontal long axis and vertical long axis views Patient was able to exercise for a total of 7 minutes on Joel protocol, METs 8.5 Maximum heart rate 139 Maximum blood pressure 212/92 Stress EKG, Minimal nondiagnostic changes Recovery EKG, Return to baseline TID: 1.07 SSS: 1 SDS: 1 EF: 78 Conclusion: Good exercise tolerance for 7 minutes on standard Joel protocol, 8.5 METS achieving 91% of maximal expected heart rate Appropriate heart rate response to exercise with hypertensive response to exercise with peak blood pressure 212/92 return to baseline during recovery Nondiagnostic EKG changes with exercise return to baseline during recovery No ischemia or infarction noted on SPECT images Normal left ventricular size, ejection fraction 78% Copy Copies To 1: [facility]/GILLIAN ROJAS MD Feb 19, 2023 14:08
== END ==
LOC: CARD 08:10
PROVIDERS: ATTEND Physician Assistant
DX: I10 Essential (primary) hypertension (principal)
CPT/HCPCS: 78452; 93017; A9502

== ENCOUNTER → 2023-03-14 | Outpatient (CLI) | payer MEDICARE, OTHER ==
[~2023-03-14] MED LIST changes: -CATHETER FLUSH 10 ML SYR IVP PRN
--- NOTE | 2023-03-14 10:01 | Diagnostic Imaging Report ---
CT Lung Screening INDICATION:40 pack year smoking history for annual low-dose CT screening TECHNIQUE: Noncontrast, low-dose CT imaging performed according to the lung cancer screening protocol. Auto Exposure Controls were utilize during the CT exam to meet ALARA standards for radiation dose reduction. COMPARISON:06/27/2020 FINDINGS:There is no suspicious new or concerning lung mass. A few subpleural micronodules 3 to 4 mm unchanged. No findings of active lung cancer. No thoracic adenopathy. No pneumonia or edema. No effusion or pneumothorax. The visible upper abdomen nonacute.. IMPRESSION:Stable benign findings continued annual low-dose CT screening follow-up recommended LUNG-RADS CATEGORY:Lung RADS category 2 MODIFIER:None Dictated by: Dictated on workstation # [id number]
--- NOTE | 2023-03-14 10:24 | Diagnostic Imaging Report ---
3-D bilateral screening mammogram with CAD. The current study was also evaluated with a Computer Aided Detection (CAD) system. This study was compared to the prior exams of 02/28/2022 and 11/09/2020. At this time there are no current complaints. The current study was also evaluated with a Computer Aided Detection (CAD) system. FINDINGS: The fibroglandular tissue in both breasts is heterogeneously dense. This does limit the sensitivity of this exam. Overall, there does not appear to have been any significant change when compared to the prior study. No primary or secondary sign of malignancy is noted. IMPRESSION: There is no radiographic evidence for malignancy. ACR BI-RADS Category 1: Negative. Result letter will be mailed to the patient. Note: At least 10% of breast cancer is not imaged by mammography. Dictated by: Dictated on workstation # [id number]
== END ==
LOC: RAD 08:01
PROVIDERS: ATTEND Family Medicine
DX: Z12.31 Encounter for screening mammogram for malignant neoplasm of breast (principal)
CPT/HCPCS: 71271; 77063; 77067